=== PATIENT | male | born 1970 | race Caucasian/White ===

== ENCOUNTER 2022-02-21 15:42 | Inpatient (IN) ==
[2022-02-21 16:44] LABS: Hematocrit 37 % (42-52); Hemoglobin 12.8 g/dL (14.0-18.0); Mean Corpuscular HGB Conc 34 g/dL (31-36); Mean Corpuscular Hemoglobin 31 pg (27-31); Mean Corpuscular Volume 91 fL (80-94); Mean Platelet Volume 7.8 fL (7.4-10.4); Platelet Count 242 10^3/uL (150-450); Red Blood Count 4.12 10^6 /uL (4.18-5.48); Red Cell Distribution Width 15 % (10-15); White Blood Count 15.4 10^3/uL (3.5-10.8)
[2022-02-21 16:47] LABS: ABS Basophils 0.1 10^3/ul (0-0.2); ABS Lymphocytes 1.7 10^3/ul (1.0-4.8); ABS Monocytes 4.7 10^3/ul (0-0.8); ABS Neutrophils 8.9 10^3/ul (1.5-7.7); Eosinophil % 0.3 %; Lymphocyte % 10.8 %
[2022-02-21 17:25] LABS: Albumin 3.2 g/dL (3.2-5.2); Albumin/Globulin Ratio 1.4 (1-3); Calcium 7.7 mg/dL (8.6-10.3); Globulin 2.3 g/dL (2-4); Potassium 3.5 mmol/L (3.5-5.0); Total Protein 5.5 g/dL (6.4-8.9); eGFR CKD-EPI 111.1 (>60)
[2022-02-21] MEDS ORDERED: Ondansetron 4 mg VIAL 2 MG/ML 2 ml VIAL IV PRN (17:42)
[2022-02-21] MEDS ORDERED: Albuterol HFA INHALER 8 gm MDI INH PRN (17:53)
[2022-02-21] MEDS: Pantoprazole VIAL 40 MG VIAL IV SCH (19:29)
[2022-02-21 20:43] LABS: C Reactive Protein 166.91 mg/L (<8.01)
[2022-02-21] MEDS: NS 0.9% 1000 ml BAG 1,000 ML IV SCH (20:47)
[2022-02-21] MEDS: Lithium Carbonate ER 450mg TAB PO SCH (20:53)
[2022-02-22 03:41] LABS: Urine Appearance Clear; Urine Bilirubin Negative (Negative); Urine Blood 1+ (Negative); Urine Color Yellow; Urine Glucose Negative (Negative); Urine Ketones 1+ (Negative); Urine Nitrite Negative (Negative); Urine Protein Negative (Negative); Urine Specific Gravity 1.014 (1.002-1.030); Urine Urobilinogen Negative (Negative)
[2022-02-22 03:47] LABS: Urine Bacteria Absent (Absent); Urine Red Blood Cell 1+(3-5/hpf) (Absent); Urine Squamous Epithelial Cell Present (Absent); Urine White Blood Cell Trace(0-5/hpf) (Absent)
[2022-02-22] MEDS: Pantoprazole VIAL 40 MG VIAL IV SCH ×2 (05:39→17:28)
[2022-02-22 06:02] LABS: Hematocrit 37 % (42-52); Hemoglobin 12.5 g/dL (14.0-18.0); Mean Corpuscular HGB Conc 34 g/dL (31-36); Mean Corpuscular Hemoglobin 31 pg (27-31); Mean Corpuscular Volume 92 fL (80-94); Platelet Count 255 10^3/uL (150-450); Red Blood Count 4.01 10^6 /uL (4.18-5.48); Red Cell Distribution Width 15 % (10-15); White Blood Count 12.9 10^3/uL (3.5-10.8)
[2022-02-22 06:07] LABS: ABS Eosinophils 0.1 10^3/ul (0-0.6); ABS Lymphocytes 2.1 10^3/ul (1.0-4.8); ABS Monocytes 3.4 10^3/ul (0-0.8); ABS Neutrophils 7.3 10^3/ul (1.5-7.7); Eosinophil % 1.1 %; Lymphocyte % 16.2 %
[2022-02-22 06:17] LABS: C Reactive Protein 155.38 mg/L (<8.01); Calcium 7.9 mg/dL (8.6-10.3); Magnesium 2.3 mg/dL (1.9-2.7); Potassium 3.6 mmol/L (3.5-5.0); eGFR CKD-EPI 110.2 (>60)
[2022-02-22] MEDS: NS 0.9% 1000 ml BAG 1,000 ML IV SCH (06:48)
[2022-02-22] MEDS ORDERED: cefTRIAXone 1 gm/50 mL D5W 1 GM/50 ML BAG IV ONE (20:45)
[2022-02-22] MEDS ORDERED: metroNIDAZOLE IV 500 MG/100ML 100 ML IVPB ONE (21:15)
[2022-02-22] MEDS: cefTRIAXone 1 gm/50 mL D5W 1 GM/50 ML BAG IV SCH (21:16)
[2022-02-22] MEDS: metroNIDAZOLE IV 500 MG/100ML 500 MG/100 ML BAG IVPB SCH (21:55)
[2022-02-22] MEDS: Lithium Carbonate ER 450mg TAB PO SCH (22:27)
[2022-02-22] MEDS: Nicotine PATCH 14 MG/24 HR PATCH TRANSDERM SCH (22:28)
[2022-02-22] MEDS ORDERED: Iohexol 350 (CONTRAST) 500 ML MDV IV ONE (23:05)
[2022-02-23] MEDS: NS 0.9% 1000 ml BAG 1,000 ML IV SCH ×2 (01:35→17:21)
[2022-02-23] MEDS: Pantoprazole VIAL 40 MG VIAL IV SCH ×2 (05:09→18:11)
[2022-02-23] MEDS: metroNIDAZOLE IV 500 MG/100ML 500 MG/100 ML BAG IVPB SCH (05:13)
[2022-02-23 06:48] LABS: Hematocrit 37 % (42-52); Hemoglobin 12.6 g/dL (14.0-18.0); Mean Corpuscular HGB Conc 35 g/dL (31-36); Mean Corpuscular Hemoglobin 32 pg (27-31); Mean Corpuscular Volume 92 fL (80-94); Mean Platelet Volume 7.6 fL (7.4-10.4); Platelet Count 333 10^3/uL (150-450); Red Blood Count 3.99 10^6 /uL (4.18-5.48); Red Cell Distribution Width 15 % (10-15); White Blood Count 20.2 10^3/uL (3.5-10.8)
[2022-02-23 06:51] LABS: ABS Basophils 0.1 10^3/ul (0-0.2); ABS Lymphocytes 2.2 10^3/ul (1.0-4.8); ABS Monocytes 4.4 10^3/ul (0-0.8); ABS Neutrophils 13.6 10^3/ul (1.5-7.7); Eosinophil % 0.2 %; Lymphocyte % 10.8 %
[2022-02-23 07:05] LABS: Albumin/Globulin Ratio 1.2 (1-3); Calcium 7.9 mg/dL (8.6-10.3); Globulin 2.5 g/dL (2-4); Magnesium 2.2 mg/dL (1.9-2.7); Potassium 3.8 mmol/L (3.5-5.0); Total Bilirubin 0.8 mg/dL (0.2-1.0); Total Protein 5.5 g/dL (6.4-8.9); eGFR CKD-EPI 108.8 (>60)
[2022-02-23 08:13] LABS: Urine Appearance Clear; Urine Bilirubin Negative (Negative); Urine Blood 1+ (Negative); Urine Color Yellow; Urine Glucose Negative (Negative); Urine Ketones Trace (Negative); Urine Nitrite Negative (Negative); Urine Protein Negative (Negative); Urine Urobilinogen Negative (Negative)
[2022-02-23 08:22] LABS: Urine Bacteria Absent (Absent); Urine Red Blood Cell 1+(3-5/hpf) (Absent); Urine White Blood Cell Trace(0-5/hpf) (Absent)
[2022-02-23] MEDS: Nicotine PATCH 14 MG/24 HR PATCH TRANSDERM SCH (11:09)
[2022-02-23] MEDS: Azithromycin 500 mg/250 ml NS 500 MG/250 ML BAG IVPB SCH (11:09)
[2022-02-23 11:22] LABS: Rapid COVID-19 Molecular Undetected (Undetected)
[2022-02-23] MEDS ORDERED: Iohexol 300 (CONTRAST) 10 ML SDV IV ONE (12:08)
[2022-02-23 17:57] LABS: TSH Ultra Thyroid Stim Horm 1.56 mcIU/mL (0.34-5.60)
[2022-02-23] MEDS: cefTRIAXone 1 gm/50 mL D5W 1 GM/50 ML BAG IV SCH (20:33)
[2022-02-23] MEDS: Lithium Carbonate ER 450mg TAB PO SCH ×2 (20:36)
[2022-02-24] MEDS: Pantoprazole VIAL 40 MG VIAL IV SCH ×2 (05:38→17:28)
[2022-02-24 06:07] LABS: Hematocrit 36 % (42-52); Hemoglobin 12.2 g/dL (14.0-18.0); Mean Corpuscular HGB Conc 34 g/dL (31-36); Mean Corpuscular Hemoglobin 31 pg (27-31); Mean Corpuscular Volume 92 fL (80-94); Platelet Count 381 10^3/uL (150-450); Red Blood Count 3.88 10^6 /uL (4.18-5.48); Red Cell Distribution Width 15 % (10-15); White Blood Count 14.9 10^3/uL (3.5-10.8)
[2022-02-24 06:11] LABS: ABS Basophils 0.1 10^3/ul (0-0.2); ABS Eosinophils 0.3 10^3/ul (0-0.6); ABS Lymphocytes 3.8 10^3/ul (1.0-4.8); ABS Monocytes 2.9 10^3/ul (0-0.8); ABS Neutrophils 7.8 10^3/ul (1.5-7.7); Lymphocyte % 25.2 %; Nucleated Red Blood Cells % 0.1
[2022-02-24 06:37] LABS: Albumin/Globulin Ratio 1.3 (1-3); Calcium 7.8 mg/dL (8.6-10.3); Globulin 2.4 g/dL (2-4); Magnesium 2.2 mg/dL (1.9-2.7); Potassium 3.7 mmol/L (3.5-5.0); Total Bilirubin 0.4 mg/dL (0.2-1.0); Total Protein 5.4 g/dL (6.4-8.9); eGFR CKD-EPI 111.6 (>60)
[2022-02-24] MEDS: Nicotine PATCH 14 MG/24 HR PATCH TRANSDERM SCH (08:27)
[2022-02-24] MEDS ORDERED: Senna TAB 8.6 mg TAB PO ONE (08:45)
[2022-02-24] MEDS: Azithromycin 500 mg/250 ml NS 500 MG/250 ML BAG IVPB SCH (10:16)
[2022-02-24] MEDS: cefTRIAXone 1 gm/50 mL D5W 1 GM/50 ML BAG IV SCH (21:41)
[2022-02-24] MEDS: Lithium Carbonate ER 450mg TAB PO SCH (21:44)
[2022-02-25 04:44] LABS: Hematocrit 35 % (42-52); Hemoglobin 11.9 g/dL (14.0-18.0); Mean Corpuscular HGB Conc 34 g/dL (31-36); Mean Corpuscular Hemoglobin 31 pg (27-31); Mean Corpuscular Volume 92 fL (80-94); Mean Platelet Volume 7.5 fL (7.4-10.4); Platelet Count 371 10^3/uL (150-450); Red Blood Count 3.84 10^6 /uL (4.18-5.48); Red Cell Distribution Width 16 % (10-15)
[2022-02-25 05:06] LABS: Calcium 7.6 mg/dL (8.6-10.3); Potassium 3.9 mmol/L (3.5-5.0); eGFR CKD-EPI 109.7 (>60)
[2022-02-25] MEDS: Pantoprazole VIAL 40 MG VIAL IV SCH ×2 (05:10→16:48)
[2022-02-25 05:59] LABS: ABS Basophils 0.1 10^3/ul (0-0.2); ABS Eosinophils 0.3 10^3/ul (0-0.6); ABS Lymphocytes 3.3 10^3/ul (1.0-4.8); ABS Monocytes 2.6 10^3/ul (0-0.8); ABS Neutrophils 6.7 10^3/ul (1.5-7.7); Eosinophil % 2.4 %; Lymphocyte % 25.4 %; Nucleated Red Blood Cells % 0.1
[2022-02-25] MEDS: Nicotine PATCH 14 MG/24 HR PATCH TRANSDERM SCH (07:53)
[2022-02-25] MEDS: Calcium Carb (TUMS) 500 mg CHEW TAB PO SCH ×2 (09:48→20:25)
[2022-02-25] MEDS: Azithromycin 500 mg/250 ml NS 500 MG/250 ML BAG IVPB SCH (09:48)
[2022-02-25] MEDS ORDERED: Enoxaparin 40 MG/0.4 ML SYR SUBCUT SCH (19:30)
[2022-02-25] MEDS: Lithium Carbonate ER 450mg TAB PO SCH (20:25)
[2022-02-25] MEDS: cefTRIAXone 1 gm/50 mL D5W 1 GM/50 ML BAG IV SCH (20:27)
[2022-02-26] MEDS: Pantoprazole VIAL 40 MG VIAL IV SCH (06:01)
[2022-02-26] MEDS: Calcium Carb (TUMS) 500 mg CHEW TAB PO SCH (07:42)
[2022-02-26] MEDS: Nicotine PATCH 14 MG/24 HR PATCH TRANSDERM SCH (08:44)
[2022-02-26 11:39] VITALS: BP 123/71
== END 2022-02-26 12:20 | DRG 247 ==
LOC: EDHOLD 15:42 → ED 15:42 → SUATTDRO 17:43 → MED 20:04
PROVIDERS: ADMIT Internal Medicine; ATTEND Internal Medicine